=== PATIENT | female | born 2000 | race Caucasian/White ===

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

== ENCOUNTER 2023-06-06 01:21 | Emergency (ER) | payer BC ==
[~2023-06-06] VITALS: Ht 165.1 cm; Wt 109.1 kg
[~2023-06-06 01:21] MED LIST: ZOFRAN ODT4 MG PO
[2023-06-06 01:46] VITALS: TEMP 97.9
[2023-06-06] MEDS ORDERED: Acetaminophen 325 MG TAB PO ONE (02:00)
[2023-06-06 02:40] VITALS: BP 121/69; PULSE 91
== END 2023-06-06 02:48 | disposition home or self-care (01) ==
LOC: COL.ER 01:21
DX: S01.81XA Laceration without foreign body of other part of head, initial encounter (principal); W01.190A Fall on same level from slipping, tripping and stumbling with subsequent striking against furniture, initial encounter